=== PATIENT | male | born 1960 | race Two or more races ===

== ENCOUNTER 2021-12-23 16:53 | Emergency (ER) | payer MEDICAID ==
[~2021-12-23] VITALS: Ht 162.6 cm; Wt 68.2 kg
[2021-12-23 16:59] VITALS: BP 156/92
[2021-12-23] MEDS ORDERED: ibuprofen 200mg tablet PO ONE (21:20)
== END 2021-12-23 21:45 | disposition home or self-care (01) ==
LOC: ER 16:55
DX: K40.90 Unilateral inguinal hernia, without obstruction or gangrene, not specified as recurrent (principal); M72.2 Plantar fascial fibromatosis; D48.3 Neoplasm of uncertain behavior of retroperitoneum
CPT/HCPCS: 73630; 74176; 99284